=== PATIENT | female | born 2000 | race Caucasian/White ===

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

== ENCOUNTER 2021-06-22 13:41 | Emergency (ER) | payer BC, SELFPAY ==
--- NOTE | ~2021-06-22 | XR_ITS ---
EXAMINATION: RIGHT ANKLE AND RIGHT FOOT. CLINICAL INFORMATION: Right ankle pain. COMPARISON: None TECHNIQUE: 3 views right foot and 2 views right ankle. FINDINGS: RIGHT FOOT: There is no visible acute fracture, dislocation or subluxation. No joint abnormality. The soft tissues are normal. RIGHT ANKLE: There is lateral malleolar soft tissue swelling. No visible acute fracture, dislocation or subluxation seen. The ankle mortise and subtalar joints are normal. XR/XR foot RT 2V IMPRESSION: Lateral malleolar soft tissue swelling. No visible acute fracture or dislocation right ankle and right foot.
--- NOTE | ~2021-06-22 | XR_ITS ---
EXAMINATION: RIGHT ANKLE AND RIGHT FOOT. CLINICAL INFORMATION: Right ankle pain. COMPARISON: None TECHNIQUE: 3 views right foot and 2 views right ankle. FINDINGS: RIGHT FOOT: There is no visible acute fracture, dislocation or subluxation. No joint abnormality. The soft tissues are normal. RIGHT ANKLE: There is lateral malleolar soft tissue swelling. No visible acute fracture, dislocation or subluxation seen. The ankle mortise and subtalar joints are normal. XR/XR ankle RT min 3V IMPRESSION: Lateral malleolar soft tissue swelling. No visible acute fracture or dislocation right ankle and right foot.
[2021-06-22 14:46] VITALS: BP 118/67; PULSE 82; RESP 18; TEMP 36.6; O2SAT 99; BMI 21.9
--- NOTE | 2021-06-22 14:48 | ED.GENADULT ---
HPI - General Adult General Chief complaint: Extremity Injury, Lower <JUWAN Luciano - Last Filed: 06/23/21 08:09> Stated complaint: twisted ankle/INJ <JUWAN Luciano - Last Filed: 06/23/21 08:09> Time Seen by Provider: 06/22/21 14:47 <JUWAN Luciano - Last Filed: 06/23/21 08:09> Source: patient <Sylwia Aggarwal LEEANN Trevino - Last Filed: 06/22/21 16:01> Mode of arrival: ambulatory <Sylwia Alessiajosé Trevino CNP - Last Filed: 06/22/21 16:01> Limitations: no limitations <Sylwia Trevino CNP - Last Filed: 06/22/21 16:01> History of Present Illness HPI narrative: Patient is a 21-year-old female with past history of ?severe? sprain to the right ankle few years ago. She reports that she had a fall last night down 3 stairs, without head strike or LOC. Reporting pain and swelling to her right ankle and foot. Pain is made worse with weight-bearing. Has not yet taken Tylenol or ibuprofen for pain. <Sylwia Trevino CNP - Last Filed: 06/22/21 16:01> Related Data Allergies/adverse reactions: Allergies Allergy/AdvReac Type Severity Reaction Status Date / Time No Known Allergies Allergy Verified 08/09/20 16:39 <JUWAN Luciano - Last Filed: 06/23/21 08:09> [facility] Past Medical History Medical History: Medical History Anemia <JUWAN Luciano - Last Filed: 06/23/21 08:09> Social History Social History: Social History Alcohol intake: never Advance Directives: No Advance Directives Information Provided: No Patient : No <JUWAN Luciano - Last Filed: 06/23/21 08:09> Physical Exam ED Vital Signs: Vital Signs - 24 hr 06/22/21 14:46 Temperature 97.9 F Pulse Rate 82 Respiratory Rate 18 Blood Pressure 118/67 Pulse Oximetry 99 BMI result Body Mass Index 21.9 <JUWAN Luciano - Last Filed: 06/23/21 08:09> Vital Signs - 24 hr 06/22/21 14:46 Temperature 97.9 F Pulse Rate 82 Respiratory Rate 18 Blood Pressure 118/67 Pulse Oximetry 99 BMI result Body Mass Index 21.9 Vital signs have been reviewed as normal and appeared to be correct. Blood pressure normal.? Heart rate normal.? Respiration rate normal. Temperature normal.? Oxygen saturation normal. <Sylwia Trevino CNP - Last Filed: 06/22/21 16:01> Appearance: Alert.?Oriented to person, place and time. No acute distress.?Normal affect. Eyes: Pupils equal, round and reactive to light.? ENT: Pharynx normal.?? Neck: Normal inspection.? Neck supple.?? CVS: Heart sounds normal. Normal heart rate and rhythm.? Pulses normal.?? Respiratory: No respiratory distress.? Lung sounds clear to auscultation bilaterally?? Abdomen: Soft and non-tender. Skin: Skin warm and dry.? Normal skin color.? Extremities: Right lateral malleolar swelling, palpable 2+ DP/PT pulses. No calf ttp? Neuro: Moves all extremities spontaneously. Sensation intact bilaterally. No focal neuro deficits. Ambulates with antalgic gait. <Sylwia Trevino CNP - Last Filed: 06/22/21 16:01> Course Course Course Narrative: Rapid medical screen. Patient here fore twisting right ankle while going down 3 stairs. patient denies hitting head. Right ankle slight slowly swollen. foot pedal pulses intact. neuro exam intact of lower extremities. Motor exam of right ankle/foot intact but limited due to pain. negative for signs of head trauma. <JUWAN Luciano - Last Filed: 06/23/21 08:09> Reevaluation(s) Reevaluation #1: Patient evaluated by this provider at this time. X-ray right foot and ankle obtained after rapid medical screening, which reveals lateral malleolar soft tissue swelling, no visible acute fracture dislocation of the ankle or foot. Mild decrease dorsiflexion and plantar flexion of the right foot. Palpable 2+ DP/PT pulses. Sensation is intact. No motor deficit. Most consistent with sprain of the right ankle. Discussed use of Tylenol and ibuprofen as needed for pain, application Aircast, rest, ice, compression, elevation. Advised to contact her primary care provider to schedule follow-up visit as needed, discussed that sprains may take up to 6 weeks to completely heal, weight bearing at tolerated. <Sylwia Trevino CNP - Last Filed: 06/22/21 16:01> Time: 15:48 <Sylwia Trevino CNP - Last Filed: 06/22/21 16:01> Discharge Plan Discharge Clinical Impression: Ankle sprain <JUWAN Luciano - Last Filed: 06/23/21 08:09> Patient Disposition: Home, Self-Care <JUWAN Luciano - Last Filed: 06/23/21 08:09> Instructions: Ankle Sprain (ED) <JUWAN Luciano - Last Filed: 06/23/21 08:09> Additional Instructions: Use Tylenol, ibuprofen as needed for pain. Rest, ice, compression, elevation. Weightbearing as tolerated. Please return to the emergency department any new or worsening symptoms or concerns. You may contact your primary care provider to schedule follow-up appointment as needed. <JUWAN Luciano - Last Filed: 06/23/21 08:09> Interventions: ED Discharge Assessment Last Done: 06/22/21 16:25 <JUWAN Luciano - Last Filed: 06/23/21 08:09> Discharge Date/Time: 06/22/21 16:25 <JUWAN Luciano - Last Filed: 06/23/21 08:09>
== END 2021-06-22 16:25 | disposition home or self-care (01) ==
PROVIDERS: Emergency Provider Emergency Medicine
DX: S93.401A Sprain of unspecified ligament of right ankle, initial encounter (principal); X50.1XXA Overexertion from prolonged static or awkward postures, initial encounter; Y93.9 Activity, unspecified; Y92.009 Unspecified place in unspecified non-institutional (private) residence as the place of occurrence of the external cause; Y99.9 Unspecified external cause status
CPT/HCPCS: 73610; 73620; 99283; 99284